=== PATIENT | female | born 1990 | race Caucasian/White ===

== ENCOUNTER 2019-03-12 19:10 | Emergency (ER) | payer OTHER ==
[~2019-03-12] VITALS: Ht 160 cm; Wt 60.8 kg
--- NOTE | 2019-03-12 19:30 | NUR ---
PT PRESENTED TO THE ER WITH A C/O RT UPPER RIB PAIN. PT HAS A DRY NONPRODUCTIVE COUGH. WILL CONTINUE TO MONITOR THE PT.
--- NOTE | 2019-03-12 19:48 | NUR ---
CXR IN PROGRESS AT THE BEDSIDE.
--- NOTE | 2019-03-12 20:41 | NUR ---
Patient discharged to home in stable condition. Written and verbal after care instructions given. Patient verbalizes understanding of instruction AND RX. PT AMBULATED OUT WITH A STEADY GAIT. VSS. NAD NOTED.
[2019-03-12 21:20] VITALS: BP 113/66
== END 2019-03-12 20:41 | disposition home or self-care (01) ==
LOC: ER 19:14
DX: R07.81 Pleurodynia (principal); J45.909 Unspecified asthma, uncomplicated; Z91.013 Allergy to seafood
CPT/HCPCS: 71045-TC

== ENCOUNTER 2019-12-26 14:43 | Emergency (ER) | payer OTHER ==
[~2019-12-26] VITALS: Ht 160 cm; Wt 61.2 kg
[2019-12-26 14:50] VITALS: BP 111/64
[2019-12-26] MEDS ORDERED: TDAP [DIPH/PERTUSSIS/TET] 0.5 ML VIAL IM ONE ×2 (15:00→15:17)
--- NOTE | 2019-12-26 15:30 | NUR ---
PT RECEIVED TETANUS SHOT. IN STABLE CONDITION.
== END 2019-12-26 15:40 | disposition home or self-care (01) ==
LOC: ER 14:50
DX: S60.511A Abrasion of right hand, initial encounter (principal); J45.909 Unspecified asthma, uncomplicated; Z23 Encounter for immunization; Z91.013 Allergy to seafood; W23.0XXA Caught, crushed, jammed, or pinched between moving objects, initial encounter; Y93.89 Activity, other specified; Y92.89 Other specified places as the place of occurrence of the external cause; Y99.8 Other external cause status
CPT/HCPCS: 90715

== ENCOUNTER 2025-01-22 18:09 | Emergency (ER) | payer OTHER ==
[~2025-01-22] VITALS: Ht 157.5 cm; Wt 70.3 kg
[2025-01-22 18:16] VITALS: BP 151/73; TEMP 98.2; O2SAT 97
[2025-01-22] MEDS ORDERED: PANT40TA49 PO (18:46)
[2025-01-22] MEDS ORDERED: MAG HYDROX/AL HYDROX/SIMETH 30 ML UDC ONE (18:46)
[2025-01-22] MEDS ORDERED: PANTOPRAZOLE 40 MG TABLET.DR PO ONE (18:46)
[2025-01-22] MEDS: MAG HYDROX/AL HYDROX/SIMETH 30 ML UDC PO ONE (18:52)
[2025-01-22] MEDS: PANTOPRAZOLE 40 MG TABLET.DR PO ONE (18:53)
== END 2025-01-22 19:00 | disposition home or self-care (01) ==
LOC: ER 18:12
DX: K21.9 Gastro-esophageal reflux disease without esophagitis (principal); J45.909 Unspecified asthma, uncomplicated; Z91.013 Allergy to seafood

== ENCOUNTER 2025-02-04 22:35 | Emergency (ER) | payer OTHER ==
[~2025-02-04] VITALS: Ht 157.5 cm; Wt 68.0 kg
[~2025-02-04 22:35] MED LIST: PANT40TA49 PO
[2025-02-04 23:26] LABS: PLATELET COUNT (AUTO) 374 K/uL (150-450); RED BLOOD CELL COUNT(AUTO) 4.02 MIL/uL (4.0-5.2); RED CELL DISTRIBUTION WIDTH 12.7 % (11.5-15.0); WHITE BLOOD COUNT (AUTO) 6.7 K/uL (4.3-11.0)
[2025-02-04 23:28] LABS: APPEARANCE,URINE CLEAR (CLEAR); BLOOD, URINE 2+ Ery/uL (NEGATIVE); LEUKOCYTE ESTERASE ,URINE NEGATIVE (NEGATIVE); NITRITE, URINE NEGATIVE (NEGATIVE); UGLUCOSE NEGATIVE (NEGATIVE)
[2025-02-04 23:30] LABS: PREGNANCY TEST URINE QUAL NEGATIVE (NEGATIVE)
[2025-02-04 23:33] LABS: CALCIUM, SERUM 8.8 mg/dL (8.5-10.1); CREATININE 0.9 mg/dL (0.6-1.3); SODIUM SERUM 137.0 mmol/L (136-145); UREA NITROGEN, BLOOD 11.0 mg/dL (7-18)
[2025-02-04 23:38] LABS: ASPARTATE AMINOTRANSFERASE 12.0 U/L (15-37); TOTAL PROTEIN, SERUM 7.8 g/dL (6.4-8.2)
[2025-02-04 23:45] LABS: ADD URINE CULTURE NO
[2025-02-05 00:25] VITALS: BP 128/77; TEMP 98.8; O2SAT 98
== END 2025-02-05 00:25 | disposition home or self-care (01) ==
LOC: ER 22:45
DX: R00.2 Palpitations (principal); J45.909 Unspecified asthma, uncomplicated; Z91.013 Allergy to seafood; Z79.899 Other long term (current) drug therapy; Z60.2 Problems related to living alone
CPT/HCPCS: 36415; 71045-TC; 80053-TC; 81001; 83735-TC; 84443-TC; 84703-TC; 85025-TC